=== PATIENT | female | born 1970 | race Two or more races ===

== ENCOUNTER 2019-10-24 17:52 | Emergency (ER) | payer MEDICAID ==
[~2019-10-24] VITALS: Ht 142.2 cm; Wt 88.5 kg
[2019-10-24 17:55] VITALS: Ht 142.2 cm; Wt 88.5 kg
[2019-10-24 20:16] VITALS: BP 158/87
== END 2019-10-24 20:16 | disposition home or self-care (01) ==
LOC: ED 17:52
DX: M23.91 Unspecified internal derangement of right knee (principal)
CPT/HCPCS: J1885